=== PATIENT | female | born 1945 | race Caucasian/White ===

== ENCOUNTER 2021-03-14 16:23 | Inpatient (IN) ==
[2021-03-16] MEDS: *HR* HYDROcodone/Acet 5/325 mg TABLET PO PRN (21:56)
[2021-03-17] MEDS: *HR* HYDROcodone/Acet 5/325 mg TABLET PO PRN ×2 (05:45→18:36)
[2021-03-17] MEDS ORDERED: *HR* Enoxaparin 40 MG/0.4 ML SYRINGE SQ SCH (07:00)
[2021-03-17 07:14] LABS: Basophils % 0.1 %; Hematocrit 25.6 % (35.3-44.9); Hemoglobin 8.4 g/dL (11.5-15.4); Lymphocytes # 2.6 K/mcL (0.6-4.6); Lymphocytes % 27.5 %; Mean Corpuscular HGB Conc 32.8 g/dL (31.6-35.5); Mean Corpuscular Hemoglobin 31.2 pg (28.0-33.3); Mean Corpuscular Volume 95.2 fL (83.0-100.0); Mean Platelet Volume 9.6 fL (9.4-12.4); Monocytes # 0.8 K/mcL (0.0-1.3); Monocytes % 8.6 %; Nucleated Red Blood Cells 0.6 /100 WBC (0); Platelet Count 207 K/mcL (140-400); Red Blood Count 2.69 M/mcL (3.82-4.97); Red Cell Distribution Width 13.5 % (11.5-14.5); Segmented Neutrophils % 62.8 %; White Blood Count 9.6 K/mcL (4.3-11.1)
[2021-03-17 07:31] LABS: BUN/Creatinine Ratio 24 (6-26); Blood Urea Nitrogen 12 mg/dL (8-23); Calcium 8.4 mg/dL (8.6-10.3); Carbon Dioxide 33 mEq/L (23-29); Chloride 99 mEq/L (98-107); Glucose 131 mg/dL (70-105); Osmolality,Calculated 284 (280-300); Potassium 3.7 mEq/L (3.5-5.1); Sodium 136 mEq/L (136-145); eGFR For African Americans > 60 (> 60); eGFR For Non-African Americans > 60 (> 60)
[2021-03-17] MEDS: Carbidopa/Levodopa 25/100 TABLET PO SCH ×3 (08:03→20:45)
[2021-03-17] MEDS: Cyanocobalamin (B-12) 1,000 MCG TABLET PO SCH (08:03)
[2021-03-17] MEDS: Cholecalciferol (D-3) 1,000 UNIT (25MCG) TABLET PO SCH (08:03)
[2021-03-17] MEDS: Venlafaxine XR (24 HR) 37.5 MG CAP.ER.24H PO SCH (08:03)
[2021-03-17] MEDS: Folic Acid 1 MG TABLET PO SCH (08:03)
[2021-03-17] MEDS ORDERED: Aspirin 81 MG TAB.CHEW PO SCH (09:00)
[2021-03-17] MEDS ORDERED: 0.9 % Sodium Chloride 500 ML IVC ONE (13:01)
[2021-03-17] MEDS: polyethylene glycoL 3350 17 GM POWD.PACK PO SCH (14:24)
[2021-03-17] MEDS: Acetaminophen 325 MG TABLET PO PRN (14:30)
[2021-03-18 05:03] LABS: Hematocrit 25.6 % (35.3-44.9); Hemoglobin 8.4 g/dL (11.5-15.4); Mean Corpuscular HGB Conc 32.8 g/dL (31.6-35.5); Mean Corpuscular Hemoglobin 31.7 pg (28.0-33.3); Mean Corpuscular Volume 96.6 fL (83.0-100.0); Mean Platelet Volume 9.3 fL (9.4-12.4); Platelet Count 206 K/mcL (140-400); Red Blood Count 2.65 M/mcL (3.82-4.97); Red Cell Distribution Width 13.7 % (11.5-14.5); White Blood Count 8.2 K/mcL (4.3-11.1)
[2021-03-18] MEDS: *HR* HYDROcodone/Acet 5/325 mg TABLET PO PRN ×3 (05:43→21:11)
[2021-03-18] MEDS: Folic Acid 1 MG TABLET PO SCH (08:08)
[2021-03-18] MEDS: Cholecalciferol (D-3) 1,000 UNIT (25MCG) TABLET PO SCH (08:08)
[2021-03-18] MEDS: Acetaminophen 325 MG TABLET PO PRN (08:08)
[2021-03-18] MEDS: Carbidopa/Levodopa 25/100 TABLET PO SCH ×3 (08:08→21:11)
[2021-03-18] MEDS: Cyanocobalamin (B-12) 1,000 MCG TABLET PO SCH (08:08)
[2021-03-18] MEDS: polyethylene glycoL 3350 17 GM POWD.PACK PO SCH (08:09)
[2021-03-18] MEDS: Venlafaxine XR (24 HR) 37.5 MG CAP.ER.24H PO SCH (08:14)
[2021-03-18] MEDS ORDERED: Aspirin 325 MG TABLET PO SCH (09:00)
[2021-03-18 16:12] LABS: Bilirubin,Urine Negative (Negative); Blood,Urine Trace-intact (Negative); Clarity,Urine Clear (Clear); Color,Urine Yellow (Yellow); Glucose,Urine (UA) Normal (Normal); Ketones,Urine Negative (Negative); Leukocyte Esterase,Urine Moderate (Negative); Nitrite,Urine Negative (Negative); PH,Urine 6.5 pH Units (5.0-8.0); Protein,Urine Negative (Neg-Trace); Urobilinogen,Urine Normal (Normal)
[2021-03-18 16:14] LABS: Bacteria,Urine Moderate per hpf (None-Few); RBC,Urine 0-3 per hpf (0-3); Squamous Epithelial Cell,Urine Few per hpf (None-Few)
[2021-03-18] MEDS ORDERED: cefTRIAXone 1,000 MG in 0.9 % Sodium Chloride Mini Bag 100 ML IVPB SCH (18:35)
[2021-03-18] MEDS ORDERED: cefTRIAXone 1,000 MG in Water for inj. (sterile) 20 ML IVPB SCH (21:00)
[2021-03-19] MEDS: cefTRIAXone 1,000 MG in Water for inj. (sterile) 20 ML IVPB SCH ×2 (02:04→16:34)
[2021-03-19] MEDS: *HR* HYDROcodone/Acet 5/325 mg TABLET PO PRN ×2 (06:26→13:28)
[2021-03-19] MEDS: Venlafaxine XR (24 HR) 37.5 MG CAP.ER.24H PO SCH (08:07)
[2021-03-19] MEDS: Cholecalciferol (D-3) 1,000 UNIT (25MCG) TABLET PO SCH (08:07)
[2021-03-19] MEDS: polyethylene glycoL 3350 17 GM POWD.PACK PO SCH (08:08)
[2021-03-19] MEDS: Cyanocobalamin (B-12) 1,000 MCG TABLET PO SCH (08:08)
[2021-03-19] MEDS: Folic Acid 1 MG TABLET PO SCH (08:08)
[2021-03-19] MEDS: Carbidopa/Levodopa 25/100 TABLET PO SCH ×3 (08:08→20:23)
[2021-03-19] MEDS: Aspirin 81 MG TAB.CHEW PO SCH (20:22)
[2021-03-19] MEDS: Acetaminophen 325 MG TABLET PO PRN (20:23)
[2021-03-20 04:53] LABS: Hematocrit 25.3 % (35.3-44.9); Hemoglobin 8.1 g/dL (11.5-15.4)
[2021-03-20] MEDS: Venlafaxine XR (24 HR) 37.5 MG CAP.ER.24H PO SCH (08:07)
[2021-03-20] MEDS: *HR* HYDROcodone/Acet 5/325 mg TABLET PO PRN ×2 (08:07→14:35)
[2021-03-20] MEDS: Aspirin 81 MG TAB.CHEW PO SCH ×2 (08:08→19:58)
[2021-03-20] MEDS: Folic Acid 1 MG TABLET PO SCH (08:08)
[2021-03-20] MEDS: Cholecalciferol (D-3) 1,000 UNIT (25MCG) TABLET PO SCH (08:08)
[2021-03-20] MEDS: Cyanocobalamin (B-12) 1,000 MCG TABLET PO SCH (08:08)
[2021-03-20] MEDS: Carbidopa/Levodopa 25/100 TABLET PO SCH ×3 (08:08→19:59)
[2021-03-20] MEDS: polyethylene glycoL 3350 17 GM POWD.PACK PO SCH (08:09)
[2021-03-20] MEDS: cefTRIAXone 1,000 MG in Water for inj. (sterile) 20 ML IVPB SCH (18:21)
[2021-03-20] MEDS: Acetaminophen 325 MG TABLET PO PRN (20:00)
[2021-03-21] MEDS: *HR* HYDROcodone/Acet 5/325 mg TABLET PO PRN ×2 (05:30→16:31)
[2021-03-21] MEDS: Folic Acid 1 MG TABLET PO SCH (08:04)
[2021-03-21] MEDS: Venlafaxine XR (24 HR) 37.5 MG CAP.ER.24H PO SCH (08:04)
[2021-03-21] MEDS: Cyanocobalamin (B-12) 1,000 MCG TABLET PO SCH (08:04)
[2021-03-21] MEDS: Cholecalciferol (D-3) 1,000 UNIT (25MCG) TABLET PO SCH (08:04)
[2021-03-21] MEDS: Carbidopa/Levodopa 25/100 TABLET PO SCH ×3 (08:04→20:22)
[2021-03-21] MEDS: polyethylene glycoL 3350 17 GM POWD.PACK PO SCH (08:05)
[2021-03-21] MEDS: Aspirin 81 MG TAB.CHEW PO SCH ×2 (08:05→20:22)
[2021-03-21] MEDS: cefTRIAXone 1,000 MG in Water for inj. (sterile) 20 ML IVPB SCH (18:21)
[2021-03-21] MEDS: Acetaminophen 325 MG TABLET PO PRN (20:23)
[2021-03-22] MEDS: *HR* HYDROcodone/Acet 5/325 mg TABLET PO PRN ×2 (04:11→20:38)
[2021-03-22 06:00] LABS: Hematocrit 27.2 % (35.3-44.9); Hemoglobin 8.5 g/dL (11.5-15.4)
[2021-03-22] MEDS: Carbidopa/Levodopa 25/100 TABLET PO SCH ×3 (08:58→20:37)
[2021-03-22] MEDS: polyethylene glycoL 3350 17 GM POWD.PACK PO SCH (08:58)
[2021-03-22] MEDS: Venlafaxine XR (24 HR) 37.5 MG CAP.ER.24H PO SCH (08:58)
[2021-03-22] MEDS: Aspirin 81 MG TAB.CHEW PO SCH ×2 (08:58→20:38)
[2021-03-22] MEDS: Cholecalciferol (D-3) 1,000 UNIT (25MCG) TABLET PO SCH (08:59)
[2021-03-22] MEDS: Cyanocobalamin (B-12) 1,000 MCG TABLET PO SCH (08:59)
[2021-03-22] MEDS: Folic Acid 1 MG TABLET PO SCH (08:59)
[2021-03-22] MEDS: cefTRIAXone 1,000 MG in Water for inj. (sterile) 20 ML IVPB SCH (17:41)
[2021-03-23] MEDS: Cholecalciferol (D-3) 1,000 UNIT (25MCG) TABLET PO SCH (09:00)
[2021-03-23] MEDS: Carbidopa/Levodopa 25/100 TABLET PO SCH ×3 (09:00→19:41)
[2021-03-23] MEDS: Cyanocobalamin (B-12) 1,000 MCG TABLET PO SCH (09:00)
[2021-03-23] MEDS: Aspirin 81 MG TAB.CHEW PO SCH ×2 (09:00→19:41)
[2021-03-23] MEDS: Venlafaxine XR (24 HR) 37.5 MG CAP.ER.24H PO SCH (09:01)
[2021-03-23] MEDS: Folic Acid 1 MG TABLET PO SCH (09:01)
[2021-03-23] MEDS: polyethylene glycoL 3350 17 GM POWD.PACK PO SCH (09:01)
[2021-03-23] MEDS: cefTRIAXone 1,000 MG in Water for inj. (sterile) 20 ML IVPB SCH (17:43)
[2021-03-23] MEDS: *HR* HYDROcodone/Acet 5/325 mg TABLET PO PRN (19:41)
[2021-03-24] MEDS: Aspirin 81 MG TAB.CHEW PO SCH ×2 (08:16→19:29)
[2021-03-24] MEDS: Cyanocobalamin (B-12) 1,000 MCG TABLET PO SCH (08:16)
[2021-03-24] MEDS: Venlafaxine XR (24 HR) 37.5 MG CAP.ER.24H PO SCH (08:16)
[2021-03-24] MEDS: Folic Acid 1 MG TABLET PO SCH (08:17)
[2021-03-24] MEDS: polyethylene glycoL 3350 17 GM POWD.PACK PO SCH (08:17)
[2021-03-24] MEDS: Carbidopa/Levodopa 25/100 TABLET PO SCH ×3 (08:17→19:30)
[2021-03-24] MEDS: Cholecalciferol (D-3) 1,000 UNIT (25MCG) TABLET PO SCH (08:17)
[2021-03-24] MEDS: cefTRIAXone 1,000 MG in Water for inj. (sterile) 20 ML IVPB SCH (17:39)
[2021-03-24] MEDS: Acetaminophen 325 MG TABLET PO PRN (19:29)
[2021-03-25] MEDS: Venlafaxine XR (24 HR) 37.5 MG CAP.ER.24H PO SCH (08:26)
[2021-03-25] MEDS: Carbidopa/Levodopa 25/100 TABLET PO SCH ×3 (08:27→21:20)
[2021-03-25] MEDS: Aspirin 81 MG TAB.CHEW PO SCH ×2 (08:27→21:20)
[2021-03-25] MEDS: Folic Acid 1 MG TABLET PO SCH (08:27)
[2021-03-25] MEDS: polyethylene glycoL 3350 17 GM POWD.PACK PO SCH (08:27)
[2021-03-25] MEDS: Cholecalciferol (D-3) 1,000 UNIT (25MCG) TABLET PO SCH (08:27)
[2021-03-25] MEDS: Cyanocobalamin (B-12) 1,000 MCG TABLET PO SCH (08:27)
[2021-03-25] MEDS: cefTRIAXone 1,000 MG in Water for inj. (sterile) 20 ML IVPB SCH (17:52)
[2021-03-26] MEDS: *HR* HYDROcodone/Acet 5/325 mg TABLET PO PRN ×3 (05:46→20:40)
[2021-03-26] MEDS: Aspirin 81 MG TAB.CHEW PO SCH ×2 (08:00→20:36)
[2021-03-26] MEDS: Cholecalciferol (D-3) 1,000 UNIT (25MCG) TABLET PO SCH (08:00)
[2021-03-26] MEDS: Folic Acid 1 MG TABLET PO SCH (08:01)
[2021-03-26] MEDS: polyethylene glycoL 3350 17 GM POWD.PACK PO SCH (08:01)
[2021-03-26] MEDS: Carbidopa/Levodopa 25/100 TABLET PO SCH ×3 (08:01→20:39)
[2021-03-26] MEDS: Cyanocobalamin (B-12) 1,000 MCG TABLET PO SCH (08:01)
[2021-03-26] MEDS: Venlafaxine XR (24 HR) 37.5 MG CAP.ER.24H PO SCH (08:01)
[2021-03-26] MEDS: Acetaminophen 325 MG TABLET PO PRN ×2 (09:58→23:10)
[2021-03-26] MEDS: cefTRIAXone 1,000 MG in Water for inj. (sterile) 20 ML IVPB SCH (16:41)
[2021-03-27] MEDS: *HR* HYDROcodone/Acet 5/325 mg TABLET PO PRN ×3 (03:51→21:27)
[2021-03-27 04:56] LABS: Hematocrit 30.4 % (35.3-44.9); Hemoglobin 9.5 g/dL (11.5-15.4); Mean Corpuscular HGB Conc 31.3 g/dL (31.6-35.5); Mean Corpuscular Hemoglobin 31.6 pg (28.0-33.3); Platelet Count 334 K/mcL (140-400); Red Blood Count 3.01 M/mcL (3.82-4.97); Red Cell Distribution Width 15.3 % (11.5-14.5); White Blood Count 8.1 K/mcL (4.3-11.1)
[2021-03-27 05:09] LABS: BUN/Creatinine Ratio 32 (6-26); Blood Urea Nitrogen 23 mg/dL (8-23); Calcium 8.9 mg/dL (8.6-10.3); Carbon Dioxide 26 mEq/L (23-29); Chloride 103 mEq/L (98-107); Glucose 125 mg/dL (70-105); Magnesium 2.2 mg/dL (1.6-2.6); Osmolality,Calculated 289 (280-300); Potassium 4.2 mEq/L (3.5-5.1); Sodium 137 mEq/L (136-145); eGFR For African Americans > 60 (> 60); eGFR For Non-African Americans > 60 (> 60)
[2021-03-27] MEDS: Aspirin 81 MG TAB.CHEW PO SCH ×2 (07:58→21:26)
[2021-03-27] MEDS: Venlafaxine XR (24 HR) 37.5 MG CAP.ER.24H PO SCH (07:58)
[2021-03-27] MEDS: Cyanocobalamin (B-12) 1,000 MCG TABLET PO SCH (07:58)
[2021-03-27] MEDS: Cholecalciferol (D-3) 1,000 UNIT (25MCG) TABLET PO SCH (07:58)
[2021-03-27] MEDS: Carbidopa/Levodopa 25/100 TABLET PO SCH ×3 (07:59→21:26)
[2021-03-27] MEDS: Folic Acid 1 MG TABLET PO SCH (07:59)
[2021-03-27] MEDS: polyethylene glycoL 3350 17 GM POWD.PACK PO SCH (07:59)
[2021-03-28] MEDS: Venlafaxine XR (24 HR) 37.5 MG CAP.ER.24H PO SCH (09:59)
[2021-03-28] MEDS: *HR* HYDROcodone/Acet 5/325 mg TABLET PO PRN ×2 (09:59→21:06)
[2021-03-28] MEDS: Aspirin 81 MG TAB.CHEW PO SCH ×2 (09:59→21:07)
[2021-03-28] MEDS: Folic Acid 1 MG TABLET PO SCH (10:00)
[2021-03-28] MEDS: Cholecalciferol (D-3) 1,000 UNIT (25MCG) TABLET PO SCH (10:00)
[2021-03-28] MEDS: Carbidopa/Levodopa 25/100 TABLET PO SCH ×3 (10:00→21:07)
[2021-03-28] MEDS: Cyanocobalamin (B-12) 1,000 MCG TABLET PO SCH (10:00)
[2021-03-28] MEDS: polyethylene glycoL 3350 17 GM POWD.PACK PO SCH (10:01)
[2021-03-29] MEDS: Venlafaxine XR (24 HR) 37.5 MG CAP.ER.24H PO SCH (08:01)
[2021-03-29] MEDS: Folic Acid 1 MG TABLET PO SCH (08:01)
[2021-03-29] MEDS: Cholecalciferol (D-3) 1,000 UNIT (25MCG) TABLET PO SCH (08:01)
[2021-03-29] MEDS: Cyanocobalamin (B-12) 1,000 MCG TABLET PO SCH (08:01)
[2021-03-29] MEDS: Aspirin 81 MG TAB.CHEW PO SCH ×2 (08:01→19:17)
[2021-03-29] MEDS: Carbidopa/Levodopa 25/100 TABLET PO SCH ×3 (08:01→19:18)
[2021-03-29] MEDS: polyethylene glycoL 3350 17 GM POWD.PACK PO SCH (08:04)
[2021-03-29] MEDS: *HR* HYDROcodone/Acet 5/325 mg TABLET PO PRN (10:21)
[2021-03-30] MEDS: *HR* HYDROcodone/Acet 5/325 mg TABLET PO PRN ×2 (08:20→20:30)
[2021-03-30] MEDS: Aspirin 81 MG TAB.CHEW PO SCH ×2 (08:20→20:28)
[2021-03-30] MEDS: Folic Acid 1 MG TABLET PO SCH (08:21)
[2021-03-30] MEDS: Cholecalciferol (D-3) 1,000 UNIT (25MCG) TABLET PO SCH (08:21)
[2021-03-30] MEDS: Carbidopa/Levodopa 25/100 TABLET PO SCH ×3 (08:21→20:29)
[2021-03-30] MEDS: Cyanocobalamin (B-12) 1,000 MCG TABLET PO SCH (08:21)
[2021-03-30] MEDS: Venlafaxine XR (24 HR) 37.5 MG CAP.ER.24H PO SCH (08:21)
[2021-03-30] MEDS: polyethylene glycoL 3350 17 GM POWD.PACK PO SCH (08:22)
[2021-03-31] MEDS: Cyanocobalamin (B-12) 1,000 MCG TABLET PO SCH (08:22)
[2021-03-31] MEDS: Cholecalciferol (D-3) 1,000 UNIT (25MCG) TABLET PO SCH (08:22)
[2021-03-31] MEDS: polyethylene glycoL 3350 17 GM POWD.PACK PO SCH (08:22)
[2021-03-31] MEDS: Venlafaxine XR (24 HR) 37.5 MG CAP.ER.24H PO SCH (08:22)
[2021-03-31] MEDS: Carbidopa/Levodopa 25/100 TABLET PO SCH ×3 (08:22→21:59)
[2021-03-31] MEDS: Aspirin 81 MG TAB.CHEW PO SCH ×2 (08:23→21:57)
[2021-03-31] MEDS: Folic Acid 1 MG TABLET PO SCH (08:23)
[2021-03-31] MEDS: *HR* HYDROcodone/Acet 5/325 mg TABLET PO PRN ×2 (13:08→22:00)
[2021-04-01] MEDS: *HR* HYDROcodone/Acet 5/325 mg TABLET PO PRN ×3 (05:50→20:06)
[2021-04-01] MEDS: Aspirin 81 MG TAB.CHEW PO SCH ×2 (08:21→20:06)
[2021-04-01] MEDS: polyethylene glycoL 3350 17 GM POWD.PACK PO SCH (08:21)
[2021-04-01] MEDS: Carbidopa/Levodopa 25/100 TABLET PO SCH ×3 (08:22→20:15)
[2021-04-01] MEDS: Folic Acid 1 MG TABLET PO SCH (08:22)
[2021-04-01] MEDS: Venlafaxine XR (24 HR) 37.5 MG CAP.ER.24H PO SCH (08:22)
[2021-04-01] MEDS: Cholecalciferol (D-3) 1,000 UNIT (25MCG) TABLET PO SCH (08:22)
[2021-04-01] MEDS: Cyanocobalamin (B-12) 1,000 MCG TABLET PO SCH (08:22)
[2021-04-02] MEDS: *HR* HYDROcodone/Acet 5/325 mg TABLET PO PRN ×3 (07:54→21:31)
[2021-04-02] MEDS: Carbidopa/Levodopa 25/100 TABLET PO SCH ×3 (07:54→21:30)
[2021-04-02] MEDS: Folic Acid 1 MG TABLET PO SCH (07:55)
[2021-04-02] MEDS: Aspirin 81 MG TAB.CHEW PO SCH ×2 (07:55→21:30)
[2021-04-02] MEDS: Venlafaxine XR (24 HR) 37.5 MG CAP.ER.24H PO SCH (07:55)
[2021-04-02] MEDS: Cyanocobalamin (B-12) 1,000 MCG TABLET PO SCH (07:55)
[2021-04-02] MEDS: Cholecalciferol (D-3) 1,000 UNIT (25MCG) TABLET PO SCH (07:55)
[2021-04-02] MEDS: polyethylene glycoL 3350 17 GM POWD.PACK PO SCH (07:56)
[2021-04-03 07:27] VITALS: BP 132/79
[2021-04-03] MEDS: Carbidopa/Levodopa 25/100 TABLET PO SCH ×2 (08:19→15:39)
[2021-04-03] MEDS: Cholecalciferol (D-3) 1,000 UNIT (25MCG) TABLET PO SCH (08:19)
[2021-04-03] MEDS: Cyanocobalamin (B-12) 1,000 MCG TABLET PO SCH (08:19)
[2021-04-03] MEDS: Aspirin 81 MG TAB.CHEW PO SCH (08:19)
[2021-04-03] MEDS: Folic Acid 1 MG TABLET PO SCH (08:19)
[2021-04-03] MEDS: Venlafaxine XR (24 HR) 37.5 MG CAP.ER.24H PO SCH (08:19)
[2021-04-03] MEDS: polyethylene glycoL 3350 17 GM POWD.PACK PO SCH (08:20)
== END 2021-04-03 16:14 | disposition home health service (06) | DRG 560 ==
LOC: INPGRE 03-16 20:30
PROVIDERS: ADMIT Family Medicine; ATTEND Family Medicine